=== PATIENT | male | born 1985 | race Caucasian/White ===

== ENCOUNTER 2021-04-06 07:27 | Emergency (ER) | payer OTHER ==
[~2021-04-06] VITALS: Ht 188 cm; Wt 90.7 kg
[2021-04-06 07:31] VITALS: BP 154/105
== END 2021-04-06 07:58 | disposition left against medical advice (07) ==
LOC: M.ERS 07:27
DX: R11.2 Nausea with vomiting, unspecified (principal); R10.9 Unspecified abdominal pain; Z53.21 Procedure and treatment not carried out due to patient leaving prior to being seen by health care provider